=== PATIENT | female | born 1965 | race Caucasian/White ===

== ENCOUNTER 2017-11-20 10:11 | Emergency (ER) | payer OTHER ==
[~2017-11-20] VITALS: Ht 165.1 cm; Wt 70.3 kg
[2017-11-20] MEDS ORDERED: HYDROCHLOROTHIA50 MG (10:15)
[2017-11-20] MEDS ORDERED: TUSSI PRES-B L120 M1 PO (11:51)
[2017-11-20] MEDS ORDERED: MEDROLPACK PO (11:51)
== END 2017-11-20 12:04 | disposition home or self-care (01) ==
LOC: ER 10:11
DX: B34.9 Viral infection, unspecified (principal)

== ENCOUNTER 2018-05-21 09:50 | Emergency (ER) | payer OTHER ==
[~2018-05-21] VITALS: Ht 165.1 cm; Wt 72.6 kg
[~2018-05-21 09:50] MED LIST: HYDROCHLOROTHIA50 MG; MEDROLPACK PO; TUSSI PRES-B L120 M1 PO
[2018-05-21] MEDS ORDERED: COZAAR100 MG (10:07)
[2018-05-21] MEDS ORDERED: PROZAC20 MG (10:08)
== END 2018-05-21 17:23 | disposition home or self-care (01) ==
LOC: ER 09:50
DX: R60.0 Localized edema (principal)

== ENCOUNTER 2019-06-03 15:31 | Emergency (ER) | payer OTHER ==
[~2019-06-03] VITALS: Ht 165.1 cm; Wt 72.6 kg
[~2019-06-03 15:31] MED LIST changes: +COZAAR100 MG; +PROZAC20 MG
[2019-06-03] MEDS ORDERED: ATIVAN0.5 M1 (15:43)
== END 2019-06-03 22:02 | disposition home or self-care (01) ==
LOC: ER 15:31
DX: N30.81 Other cystitis with hematuria (principal); R10.2 Pelvic and perineal pain

== ENCOUNTER 2020-03-24 09:26 | Emergency (ER) | payer OTHER ==
[~2020-03-24] VITALS: Ht 165.1 cm; Wt 72.6 kg
[~2020-03-24 09:26] MED LIST changes: +ATIVAN0.5 M1
[2020-03-24] MEDS ORDERED: CLONAZEPAM1 MG PO (09:35)
[2020-03-24] MEDS ORDERED: FLONASE16 GM IH (14:11)
[2020-03-24] MEDS ORDERED: FLOVENT IH (14:28)
== END 2020-03-24 14:35 | disposition home or self-care (01) ==
LOC: ER 09:26
DX: J45.901 Unspecified asthma with (acute) exacerbation (principal)

== ENCOUNTER 2020-07-20 21:33 | Emergency (ER) | payer OTHER ==
[~2020-07-20] VITALS: Ht 165.1 cm; Wt 72.6 kg
[~2020-07-20 21:33] MED LIST changes: +CLONAZEPAM1 MG PO; +FLONASE16 GM IH; +FLOVENT IH
[2020-07-20] MEDS ORDERED: LAMICTAL25 MG PO (22:04)
[2020-07-20] MEDS ORDERED: PROZAC20 MG PO (22:04)
== END 2020-07-21 02:49 | disposition home or self-care (01) ==
LOC: ER 21:33
DX: R10.31 Right lower quadrant pain (principal); R10.11 Right upper quadrant pain

== ENCOUNTER 2022-06-02 15:41 | Emergency (ER) | payer OTHER ==
[~2022-06-02] VITALS: Ht 165.1 cm; Wt 70.8 kg
[~2022-06-02 15:41] MED LIST changes: +LAMICTAL25 MG PO; +PROZAC20 MG PO
[2022-06-02] MEDS ORDERED: LEVO-T25 MCG PO (16:28)
== END 2022-06-02 19:09 | disposition home or self-care (01) ==
LOC: ER 15:41
DX: R00.2 Palpitations (principal); J10.1 Influenza due to other identified influenza virus with other respiratory manifestations; Z20.822 Contact with and (suspected) exposure to COVID-19; F32.A Depression, unspecified

== ENCOUNTER → 2023-03-17 | Emergency (ER) | payer OTHER ==
[~2023-03-17] MED LIST changes: +LEVO-T25 MCG PO
== END | disposition left against medical advice (07) ==
LOC: ER 11:32
DX: Z53.21 Procedure and treatment not carried out due to patient leaving prior to being seen by health care provider (principal)

== ENCOUNTER 2024-06-06 15:17 | Emergency (ER) | payer OTHER ==
[~2024-06-06] VITALS: Ht 165.1 cm; Wt 71.7 kg
[2024-06-06 15:37] VITALS: BP 162/90; O2SAT 99
[2024-06-06] MEDS ORDERED: KETOROLAC TROMETHAMINE 30 MG VIAL IM STA (17:53)
[2024-06-06 18:44] LABS: HEMATOCRIT 38.6 % (36.0-45.00); HEMOGLOBIN 13.4 g/dL (12.0-15.00); MEAN CELL VOLUME 89.9 fL (80.00-100.00); MEAN CORPUSCULAR HEMOGLOBIN 31.3 pg (27.00-32.0); MEAN CORPUSCULAR HGB CONC 34.8 g/dl (32.0-36.0); PLATELET COUNT 194 K/uL (150-450); RED BLOOD COUNT 4.29 M/uL (4.00-6.00); RED CELL DISTRIBUTION WIDTH 13.9 % (11.5-14.5)
[2024-06-06 18:49] LABS: PH,URINE 6.5 (5.0-8.0); URINE APPEARANCE Cloudy; URINE BILIRRUBIN Negative (NEGATIVE); URINE BLOOD Large; URINE COLOR Yellow; URINE GLUCOSE Negative (NEGATIVE); URINE KETONE Negative (NEGATIVE); URINE LEUKOCYTE Large; URINE NITRATE Negative; URINE PROTEIN Negative (NEGATIVE); URINE UROBILINOGEN 0.2 E.U./dl
[2024-06-06 18:50] LABS: URINE BACTERIA 74.6 uL (0.0-1933); URINE EPITHELIAL CELLS 7.1 uL (0.0-38.8); URINE RBC 13.4 uL (0.0-20.8); URINE WBC 1176.7 uL (0.0-23.2)
[2024-06-06 18:59] LABS: URINE CAST 0.29 uL (0.0-1.40)
[2024-06-06 19:12] LABS: CALCIUM 9.7 mg/dL (8.5-10.1); CREATININE SERUM 0.98 mg/dL (0.55-1.02); GFR 57.89; POTASSIUM 4.8 mEq/L (3.5-5.1)
[2024-06-06] MEDS ORDERED: PYRIDIUM200 MG PO (20:56)
[2024-06-06] MEDS ORDERED: CIPRO500 MG PO (20:56)
== END 2024-06-06 21:15 | disposition home or self-care (01) ==
LOC: ER 15:17
PROVIDERS: General Practice
DX: N39.0 Urinary tract infection, site not specified (principal); R30.0 Dysuria; I10 Essential (primary) hypertension; K59.00 Constipation, unspecified
CPT/HCPCS: 36415; 74176; 96372; 99284; J1885